=== PATIENT | female | born 1945 | race Caucasian/White ===

== ENCOUNTER 2023-05-02 16:59 | Emergency (ER) | payer MEDICARE, SELFPAY ==
[2023-05-02 17:16] VITALS: BP 134/73; PULSE 76; RESP 16; TEMP 36.1; O2SAT 96; BMI 33.6
--- NOTE | 2023-05-02 17:29 | CRLHL7_ITS ---
For Patients: As a result of the 21st Century Cures Act, medical imaging exams and procedure reports are released immediately into your electronic medical record. You may view this report before your referring provider. If you have questions, please contact your health care provider. INDICATION: Diarrhea, bloody stools x1 month TECHNIQUE: CT abdomen and pelvis acquired with 92 cc Isovue 370 IV contrast. Permanently recorded images are archived. COMPARISON: None. FINDINGS: Lower chest: 5 mm nodule in the right middle lobe. Liver: Normal in size and attenuation. No suspicious masses. Gallbladder and bile ducts: 7 mm hyperdense focus along the posterior wall of the gallbladder fundus. No pericholecystic fluid or mural thickening. No biliary ductal dilatation. Pancreas: Unremarkable. No mass or inflammation. Spleen: Unremarkable. Normal in size. No masses. Adrenal glands: Unremarkable. No nodules. Kidneys, Ureters, and Bladder: Several small bilateral nonobstructing nephroliths. Few small right renal cysts. No suspicious mass. Unremarkable ureters and bladder. GI tract: Prominent thickening of the rectosigmoid wall circumferentially, for example series 2, image 114. Diverticulosis. The appendix is not clearly visualized; however, there are no inflammatory changes in the right lower quadrant. Vasculature: Abdominal aorta is normal in caliber. Mesenteric arteries are patent. Lymph nodes: Multiple prominent perirectal lymph nodes including an enlarged left perirectal lymph node measuring 8 mm, series 2, image 103. Peritoneum/Abdominal Wall: Unremarkable. No free air or significant free fluid. Pelvis: No adnexal mass. Unremarkable uterus. Bones: Unremarkable for age. IMPRESSION: Diverticulosis without evidence of diverticulitis. Prominent circumferential of the rectosigmoid wall with adjacent perirectal lymphadenopathy. No significant perirectal inflammatory changes. Findings are concerning for a possible rectal neoplasm. Proctitis is a consideration, though is less favored. Recommend GI consultation for direct visualization. 7 mm hyperdense focus along the posterior wall of the gallbladder fundus may represent an adherent stone or polyp. Several small bilateral nonobstructing nephroliths. 5 mm right middle lobe pulmonary nodule. Given the rectal findings, recommend attention on follow-up imaging since possible metastatic disease cannot be entirely excluded. Please note that all CT scans at this facility use dose modulation, iterative reconstruction, and/or weight-based dosing when appropriate to reduce radiation dose to as low as reasonably achievable. Dictated by Faraz Valadez MD @ 05/02/2023 7:47:57 PM (Electronically Signed)
[2023-05-02 17:40] LABS: Basophils Absolute Auto 0.05 K/uL (0.00-0.30); Basophils Percent Auto 0.7 % (0.0-3.0); Eosinophils Absolute Auto 0.17 K/uL (0.00-0.50); Eosinophils Percent Auto 2.5 % (0.0-7.0); Hematocrit 43.9 % (33.0-51.0); Hemoglobin* 14.5 gm/dL (12.0-16.0); Immature Granulocytes Pct Auto 0.4 %; Lymphocytes Percent Auto 32.4 % (20-44); Mean Corpuscular HGB Conc 33 gm/dL (32-36); Mean Corpuscular Hemoglobin 28 pg (26-34); Mean Corpuscular Volume 84 fL (80-100); Monocytes Percent Auto 9.4 % (0.0-11.0); Neutrophils Percent Auto 54.6 % (42.0-72.0); Platelet Count* 246 K/uL (140-440); RDW Coefficient of Variation % 13.3 % (11.5-15.5); Red Blood Count 5.22 m/uL (4.00-5.20); White Blood Count* 6.79 K/uL (4.50-11.00)
[2023-05-02 17:41] LABS: Immature Granulocytes Abs Auto 0.03 K/uL (0.00-0.30)
[2023-05-02] MEDS: 0.9 % SODIUM CHLORIDE 1000 ml 1,000 ML IV (17:43)
[2023-05-02 17:53] LABS: Chloride* 106 mmol/L (96-114); Potassium* 3.7 mmol/L (3.6-5.1); Sodium* 136 mmol/L (135-149)
[2023-05-02 17:56] LABS: Creatinine* 0.6 mg/dL (0.5-1.5); Est. Creatinine Clearance* 41.33; Estimated Glomerular Filt Rate 93 ml/min
[2023-05-02 17:57] LABS: Blood Urea Nitrogen* 17 mg/dL (7-30); Calcium* 9.3 mg/dL (8.4-10.6); Carbon Dioxide* 21 mmol/L (20-32); Glucose* 96 mg/dL (60-115)
[2023-05-02 17:58] LABS: Alanine Aminotransferase* 14 U/L (4-35); Alkaline Phosphatase* 76 U/L (40-150); Aspartate Amino Transferase* 20 U/L (12-35); Bilirubin Direct* 0.1 mg/dL (0.0-0.5); Bilirubin Total* 0.7 mg/dL (0.1-1.5); Lipase* 83 U/L (23-300); Total Protein* 7.2 g/dL (6.0-8.3)
[2023-05-02 18:00] LABS: C Reactive Protein* 0.5 mg/dL (0.5-1.0)
[2023-05-02 18:01] LABS: Slide Review Reflex No
[2023-05-02 18:25] LABS: Appearance Urine Clear (Clear); Bilirubin Urine Negative (Negative); Blood Urine Trace-intact (Negative); Color Urine Yellow (Yellow); Glucose Urine Negative (Negative); Ketones Urine Negative (Negative); Leukocyte Esterase Urine Negative (Negative); Nitrite Urine Negative (Negative); Protein Urine Negative (Negative); Urobilinogen Urine 0.2 (0.2-1.0); pH Urine 6.5 (5.0-8.5)
--- NOTE | 2023-05-02 18:30 | ED_ITS ---
HPI - General Adult General Date Seen: 05/02/23 Chief complaint: GI Bleed Stated complaint: Dehydration Time Seen by Provider: 05/02/23 17:15 Source: patient Mode of arrival: ambulatory Limitations: no limitations History of Present Illness HPI narrative: Patient is a 77-year-old woman who presents for evaluation of diarrhea. She says this is been present for the past month or so, had at 1 point gotten little better but now is worse again. Occasionally she has bloody stools. She has not had any melena. Last night she had abdominal cramping which is now improved. No fevers. She says any time she eats anything spicy she immediately gets diarrhea. She has not eaten much today so the last time she had diarrhea was yesterday. Denies any recent antibiotics or travel. She tried Pepto-Bismol which did not have any effect. She had a colonoscopy she thinks probably 30 years ago which she says was normal but she has not had 1 since, does not really go to the doctor. She has not had any nausea or vomiting. Status post appendectomy, no other abdominal surgeries. Denies other medical history. Related Data Home Medications Medication Instructions Recorded Confirmed No Known Home Medications 05/02/23 05/02/23 Review of Systems Status of ROS: Reports: 10 or more systems reviewed and unremarkable except as noted in History and below [facility] Social History Smoking Status: Current every day smoker Do you use any of these nicotine containing products: None How often do you have a drink containing alcohol: never AUDIT-C Alcohol total score: 0 Non-prescribed substance use: denies use Exam Narrative: Exam Narrative: Vital signs as noted above. In general, an alert, well-appearing patient. Head: Normocephalic, atraumatic. Eyes: Pupils are equal reactive. Extraocular movements are full. Conjunctivae are normal. ENT: Mucous membranes are moist. Neck: Supple without lymphadenopathy. Heart: Regular rate and rhythm. No murmur or rub. Lungs: Clear bilaterally. No increased work of breathing, crackles or wheezes. Abdomen: Soft and nontender. No organomegaly. Extremities: Well perfused. No edema. No calf tenderness. Pulses intact. Neurologic: Patient is alert and oriented to person and place. Speech is fluent. Face is symmetric. Moves all extremities equally. Affect: Normal. Skin: Warm and dry. Well perfused. Const: Vital Signs, click to edit/add: Vital Signs - 24 hr 05/02/23 17:16 Temperature 96.9 F L Pulse Rate [Pulse Oximeter] 76 Respiratory Rate 16 Blood Pressure [Ri ght Upper Arm] 134/73 Pulse Oximetry 96 Oxygen Delivery Me thod Room Air Documenting provider has reviewed patient's vital signs: yes Course Course Hospital Course: Labs thus far show a normal white blood cell count of 6.8, normal hemoglobin. Metabolic panel is normal LFTs are normal lipase is normal. Urinalysis is pending. I am going to get a CT to look for colitis, diverticulitis, enteritis or other findings there. Discussed that diarrhea is something we often cannot find a cause for and she may need follow-up with gastroenterology. Labs are notable for a normal white blood cell count and hemoglobin of 14.5. Inflammatory markers are unremarkable. Metabolic panel normal. Lipase is 83. Urinalysis is negative. CT scan by my review showed abnormalities around the rectum. Final radiology read is as follows:IMPRESSION: Diverticulosis without evidence of diverticulitis. Prominent circumferential of the rectosigmoid wall with adjacent perirectal lymphadenopathy. No significant perirectal inflammatory changes. Findings are concerning for a possible rectal neoplasm. Proctitis is a consideration, though is less favored. Recommend GI consultation for direct visualization. 7 mm hyperdense focus along the posterior wall of the gallbladder fundus may represent an adherent stone or polyp. Several small bilateral nonobstructing nephroliths. 5 mm right middle lobe pulmonary nodule. Given the rectal findings, recommend attention on follow-up imaging since possible metastatic disease cannot be entirely excluded. I have discussed all this with the patient. She mostly just wants to go home. She sounds very resistant to the idea seeing anybody in primary care. I did talk with Dr. Calvert and established that they could do a colonoscopy to evaluate this further. I have ordered that test so that endoscopy will call her to get that scheduled but I have really stressed her that she needs to have primary care involved as well. For worsening symptoms, severe bleeding, inability to pass gas or stool, fever etcetera, return to the emergency department. She did not have diarrhea while in the emergency department so stool studies were not sent. Vital Signs Vital signs: Initial Vital Signs Temperature 96.9 F L 05/02/23 17:16 Temperature Source Temporal Artery Scan 05/02/23 17:16 Pulse Rate 76 05/02/23 17:16 Respiratory Rate 16 05/02/23 17:16 Blood Pressure 134/73 05/02/23 17:16 Blood Pressure Mean 93 05/02/23 17:16 Pulse Oximetry 96 05/02/23 17:16 Oxygen Delivery Method Room Air 05/02/23 17:16 Vital Signs Temperature 96.9 F L 05/02/23 17:16 Pulse Rate 76 05/02/23 17:16 Respiratory Rate 16 05/02/23 17:16 Blood Pressure 134/73 05/02/23 17:16 Pulse Oximetry 96 05/02/23 17:16 Oxygen Delivery Method Room Air 05/02/23 17:16 Temperature 96.9 F L 05/02/23 17:16 Pulse Rate 76 05/02/23 17:16 Respiratory Rate 16 05/02/23 17:16 Blood Pressure 134/73 05/02/23 17:16 Pulse Oximetry 96 05/02/23 17:16 Oxygen Delivery Method Room Air 05/02/23 17:16 Medical Decision Making Lab Data Labs: Lab Results 05/02/23 05/02/23 05/02/23 Range/Units 17:30 17:31 18:20 WBC 6.79 (4.50-11.00) K/uL RBC 5.22 H (4.00-5.20) m/uL Hgb 14.5 (12.0-16.0) gm/dL Hct 43.9 (33.0-51.0) % MCV 84 (80-100) fL MCH 28 (26-34) pg MCHC 33 (32-36) gm/dL RDW Coeff of Lala 13.3 (11.5-15.5) % Plt Count 246 (140-440) K/uL Neut % (Auto) 54.6 (42.0-72.0) % Lymph % (Auto) 32.4 (20-44) % Evans % (Auto) 9.4 (0.0-11.0) % Eos % (Auto) 2.5 (0.0-7.0) % Baso % (Auto) 0.7 (0.0-3.0) % Neut # (Auto) 3.70 (1.7-7.0) K/uL Lymph # (Auto) 2.20 (0.90-2.90) K/uL Evans # (Auto) 0.60 (0.00-0.90) K/UL Eos # (Auto) 0.17 (0.00-0.50) K/uL Baso # (Auto) 0.05 (0.00-0.30) K/uL Abs Immat Gran (auto) 0.03 (0.00-0.30) K/uL Imm/Tot Granulo (auto) 0.4 % Sodium 136 (135-149) mmol/L Potassium 3.7 (3.6-5.1) mmol/L Chloride 106 (96-114) mmol/L Carbon Dioxide 21 (20-32) mmol/L BUN 17 (7-30) mg/dL Creatinine 0.6 (0.5-1.5) mg/dL Estimated Creat Clear 41.33 Estimated GFR 93 ml/min Glucose 96 (60-115) mg/dL Calcium 9.3 (8.4-10.6) mg/dL Total Bilirubin 0.7 (0.1-1.5) mg/dL Direct Bilirubin 0.1 (0.0-0.5) mg/dL AST 20 (12-35) U/L ALT 14 (4-35) U/L Alkaline Phosphatase 76 (40-150) U/L C-Reactive Protein 0.5 (0.5-1.0) mg/dL Total Protein 7.2 (6.0-8.3) g/dL Albumin 4.0 (3.3-5.0) g/dL Lipase 83 (23-300) U/L Urine Color Yellow (Yellow) Urine Appearance Clear (Clear) Urine pH 6.5 (5.0-8.5) Ur Specific Stinnett 1.010 (1.000-1.030) Urine Protein Negative (Negative) Urine Glucose (UA) Negative (Negative) Urine Ketones Negative (Negative) Urine Blood Trace-intact A (Negative) Urine Nitrite Negative (Negative) Urine Bilirubin Negative (Negative) Urine Urobilinogen 0.2 (0.2-1.0) Ur Leukocyte Esterase Negative (Negative) Urine RBC 0-2 (0-2) Urine WBC 0-2 (0-5) Ur Squamous Epith Cells None (None-Few) Urine Bacteria None (None) Discharge Plan Discharge Clinical Impression: Abnormal CT scan, colon, Bloody stools Patient Disposition: Home, Self-Care Condition: Stable Instructions: Rectal Bleeding (ED) Additional Instructions: You will need to things as an outpatient. One is clinic follow-up with a primary care doctor. You need to call and make this appointment at [phone]. Secondly, you need a colonoscopy to evaluate the abnormality seen on CT scan in the rectal area. I will order this test and endoscopy will call you to schedule this. If at any time you have significant rectal bleeding, are unable to pass gas or s tool, or have new symptoms such as fever, return to the emergency department. Prescriptions: No Action No Known Home Medications Follow Up/Referrals: Provider,Not a Local [Primary Care Provider] - Stand Alone Forms: [email or web address] Info Instructions
[2023-05-02 18:38] LABS: RBC Urine 0-2 (0-2); WBC Urine 0-2 (0-5)
== END 2023-05-02 20:35 | disposition home or self-care (01) ==
PROVIDERS: Emergency Provider Emergency Medicine
DX: K92.1 Melena (principal); R93.3 Abnormal findings on diagnostic imaging of other parts of digestive tract
CPT/HCPCS: 36415; 74177; 80048; 80076; 81001; 83605; 83690; 85025; 86140; 99283; 99284; J7030; Q9967

== ENCOUNTER 2023-05-12 11:19 | Outpatient (CLI) | payer MEDICARE, SELFPAY ==
--- NOTE | 2023-05-12 08:26 | W.ANESCHARGE ---
Anesthesia Charges Start Date/Time Anesthesia Start Date: 05/12/23 Anesthesia Start Time: 12:18 Stop Date/Time Anesthesia Stop Date: 05/12/23 Anesthesia Stop Time: 12:42 Summary Extremes of Age - Over 70 or under 1: MDA
--- NOTE | 2023-05-12 12:45 | W.ANESCHARGE ---
Anesthesia Charges Start Date/Time Anesthesia Start Date: 05/12/23 Anesthesia Start Time: 12:18 Stop Date/Time Anesthesia Stop Date: 05/12/23 Anesthesia Stop Time: 12:42
== END 2023-05-12 11:20 | disposition home or self-care (01) ==
LOC: OP CLINIC 11:20
PROVIDERS: Visit Provider Family Medicine
DX: R93.3 Abnormal findings on diagnostic imaging of other parts of digestive tract (principal); K63.5 Polyp of colon; C19 Malignant neoplasm of rectosigmoid junction; K56.690 Other partial intestinal obstruction; K57.30 Diverticulosis of large intestine without perforation or abscess without bleeding
CPT/HCPCS: 45380; 45381; 811; 88305; 88341; 88342; 99100; J2704

== ENCOUNTER 2023-09-09 12:06 | Outpatient (CLI) | payer MEDICARE, SELFPAY | END 2023-09-09 12:07 | disposition home or self-care (01) | LOC: AMB 10-12 15:15 | PROVIDERS: Visit Provider Family Medicine | DX: I46.9 Cardiac arrest, cause unspecified (principal) | CPT/HCPCS: A0433 ==